=== PATIENT | female | born 2000 | race Two or more races ===

== ENCOUNTER 2024-12-25 00:14 | Emergency (ER) | payer OTHER ==
[~2024-12-25] VITALS: Ht 165.1 cm; Wt 54.4 kg
[2024-12-25 00:15] VITALS: BP 123/74; TEMP 98; O2SAT 99
== END 2024-12-25 00:55 ==
LOC: ER 00:14
DX: S09.90XA Unspecified injury of head, initial encounter (principal); F10.129 Alcohol abuse with intoxication, unspecified; Z65.3 Problems related to other legal circumstances; W22.01XA Walked into wall, initial encounter; Y93.89 Activity, other specified; Y92.89 Other specified places as the place of occurrence of the external cause; Y99.8 Other external cause status; Y90.9 Presence of alcohol in blood, level not specified